=== PATIENT | male | born 2005 | race Caucasian/White ===

== ENCOUNTER 2024-12-18 19:00 | Outpatient (REF) | payer OTHER, SELFPAY ==
--- NOTE | ~2024-12-18 | MR_ITS ---
CLINICAL HISTORY: Low back pain, unspecified. Evaluate sacral stress fracture. MR lumbar spine without gadolinium Comparison: None Findings: Normal alignment. Heterogeneous marrow edema noted along the right sacral ala with evident fracture line in keeping with reported history of stress fracture. Marrow edema is confined of the sacrum without extension along the iliac bone. No SI joint effusion. SI joints appear aligned. Cauda equina and conus medullaris within normal limits. Mild bilateral foraminal stenoses at L3-L4 with mild facet arthropathy. No high-grade spinal canal narrowing. [id number] right and mild left bilateral foraminal stenoses at L4-L5 with mild facet arthropathy. No high-grade spinal canal narrowing. Mild bilateral foraminal stenoses at L5-S1 with mild facet arthropathy. No high-grade spinal canal narrowing. Paraspinous musculature intact. IMPRESSION: 1. Right sacral stress fracture. 2. No high-grade spinal canal narrowing. 3. Mild multilevel facet arthropathy with [id number] foraminal stenoses described. This document has been electronically signed by: Aakash Dasilva MD on 12/18/2024 20:32:05
== END 2024-12-18 19:01 | disposition home or self-care (01) ==
LOC: HO.MRI 19:00
PROVIDERS: Visit Provider Family Medicine
DX: M54.50 Low back pain, unspecified (principal)
CPT/HCPCS: 72148

== ENCOUNTER → 2024-12-18 19:19 | Outpatient (BNV) | payer OTHER, SELFPAY | PROVIDERS: Visit Provider Radiology Diagnostic Radiology | DX: S32.10XA Unspecified fracture of sacrum, initial encounter for closed fracture (principal); M47.816 Spondylosis without myelopathy or radiculopathy, lumbar region; M48.061 Spinal stenosis, lumbar region without neurogenic claudication | CPT/HCPCS: 72148 ==